=== PATIENT | female | born 1955 | race African-American/Black ===

== ENCOUNTER 2024-09-08 00:55 | Emergency (ER) | payer OTHER ==
[~2024-09-08] VITALS: Ht 167.6 cm; Wt 76.2 kg
--- NOTE | 2024-09-08 01:43 | ED.PDOC ---
History of Present Illness HPI Comments 69-year-old female who came to ER due to syncope. States she was at home, laying at the couch, when she stood up and suddenly felt dizzy and lightheaded, and passed out. Patient woke up on the ground and was assisted by family members. Patient currently complaining of headaches, chest pains, and generalized weakness. Blood sugar upon arrival was 117, with a blood pressure 107/72 mm Hg. Patient states possible fevers, but patient was afebrile at arrival. Chief Complaint: Syncope Time Seen by MD: 01:43 Primary Care Provider: N/A Reviewed Notes: Nurses Notes Allergies: Coded Allergies: No Known Drug Allergy (Verified Allergy, Unknown, 09/08/24) Home Meds Active Scripts Ondansetron Odt 4MG Tab (ZOFRAN PO) 4 Mg Tb, 4 MG PO Q6HP PRN, #20 TAB ODT TAB-DISSOLVE IN MOUTH, THEN SWALLOW Prov:MARIUSZ SHEA [facility] 09/08/24 Ibuprofen (Ibuprofen) 600 Mg Tab, 1 TAB PO Q6HP PRN, #30 TAB Prov:MARIUSZ SHEA [facility] 09/08/24 Acetaminophen (Acetaminophen) 500 Mg Tab, 500 MG PO Q4HP PRN, #30 TAB Prov:MARIUSZ SHEA [facility] 09/08/24 Oseltamivir Phosphate (Tamiflu) 75 Mg Cap, 75 MG PO BID for 5 Days, #10 CAP Prov:MARIUSZ SHEA 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 Family History Family History: Reviewed,noncontributory to illness Social History Smoker: Non-Smoker Alcohol: Denies ETOH Use Drugs: Denies Drug Use Lives In: Home Constitutional: reports: malaise, weakness; denies: chills, diaphoresis, fatigue, fever, sweats, others EENTM: denies: blurred vision, double vision, ear bleeding, ear discharge, ear drainage, ear pain, ear ringing, eye pain, eye redness, hearing loss, mouth pain, mouth swelling, nasal discharge, nose bleeding, nose congestion, nose pain, photophobia, tearing, throat pain, throat swelling, voice changes, others Respiratory: denies: cough, hemoptysis, orthopnea, SOB at rest, shortness of breath, SOB with excertion, stridor, wheezing, others Cardiovascular: reports: chest pain; denies: dizzy spells, diaphoresis, Dyspnea on exertion, edema, irregular heart beat, left arm pain, lightheadedness, palpitations, PND, syncope, others Gastrointestinal: denies: abdomen distended, abdominal pain, blood streaked bowels, constipated, diarrhea, dysphagia, difficulty swallowing, hematemesis, melena, nausea, poor appetite, poor fluid intake, rectal bleeding, rectal pain, vomiting, others Genitourinary: denies: abnormal vagina bleeding, burning, dyspareunia, dysuria, flank pain, frequency, hematuria, incontinence, pain, , vagina discharge, urgency, others Neurological: reports: dizziness, fainting, headache, weakness; denies: left sided numbness, left sided weakness, numbness, paresthesia, pre-existing deficit, right sided numbness, right sided weakness, seizure, speech problems, tingling, tremors, others Musculoskeletal: denies: back pain, gout, joint pain, joint swelling, muscle pain, muscle stiffness, neck pain, others Integumetry: denies: bruises, change in color, change in hair/nails, dryness, laceration, lesions, lumps, rash, wounds, others Allergic/Immunocompromised: denies: Difficulty Healing, Frequent Infections, Hives, Itching, others Hematologic/Lymphatic: denies: anemia, blood clots, easy bleeding, easy bruising, swollen glands, others Endocrine: denies: excessive hunger, excessive sweating, excessive thirst, excessive urination, flushing, intolerance to cold, intolerance to heat, unexplained weight gain, unexplained weight loss, others Psychiatric: denies: anxiety, bipolar disorder, depression, hopeless, panic disorder, schizophrenia, sleepless, suicidal, others Physical Exam Exam Comments Patient was very histrionic at time of evaluation. General Appearance: Moderate Distress (Patient presents as a moderately ill 69-year-old female.), Normal HEENT: Normal ENT Inspection, Pharynx Normal, TMs Normal Neck: Full Range of Motion, Non-Tender, Normal, Normal Inspection Respiratory: Chest Non-Tender, Lungs Clear, No Accessory Muscle Use, No Respiratory Distress, Normal Breath Sounds Cardiovascular: No Edema, No JVD, No Murmur, No Gallop, Normal Peripheral Pulses, Regular Rate/Rhythm Breast Exam: Deferred Gastrointestinal: No Organomegaly, Non Tender, No Pulsatile Mass, Normal Bowel Sounds, Soft Genitalia: Deferred Pelvic: Deferred Rectal: Deferred Extremities: No calf tenderness, Normal capillary refill, Normal inspection, Normal range of motion, Non-tender, No pedal edema Musculoskeletal : Apperance: Normal Neurologic: Alert, No Motor Deficits, No Sensory Deficits Cerebellar Function: Normal Reflexes: Normal Skin: Dry, Normal Color, Warm Lymphatic: No Adenopathy Was a procedure done? Was a procedure done?: No Differential Dx Considerations may include: Anemia, electrolyte imbalance, syncope, dehydration, influenza a/B, COVID-19, UTI, sepsis, viral illness X-Ray, Labs, Meds, VS Vital Signs Date Time Temp Pulse Resp B/P (MAP) Pulse Ox O2 Delivery O2 Flow Rate FiO2 09/08/24 02:00 82 9 123/70 (87) 98 09/08/24 01:16 99.8 109 16 107/72 (84) 100 09/08/24 01:14 90 Lab Test 09/08/24 01:33 09/08/24 01:19 09/08/24 01:08 Range/Units White Blood Count 6.7 4.4-10.8 10^3/uL Red Blood Count 5.89 H 4.0-5.20 10^6/uL Hemoglobin 13.2 12.2-16.2 g/dL Hematocrit 40.4 36.0-46.0 % Mean Corpuscular Volume 68.6 L 80.0-100.0 fL Mean Corpuscular Hemoglobin 22.5 L 28.0-32.0 pg Mean Corpuscular Hemoglobin Concent 32.7 32.0-36.0 g/dL Red Cell Distribution Width 15.9 H 11.8-14.3 % Platelet Count 188 140-450 10^3/uL Mean Platelet Volume 9.5 6.9-10.8 fL Neutrophils (%) (Auto) 72.6 37.0-80.0 % Lymphocytes (%) (Auto) 15.1 10.0-50.0 % Monocytes (%) (Auto) 11.8 0.0-12.0 % Eosinophils (%) (Auto) 0.0 0.0-7.0 % Basophils (%) (Auto) 0.5 0.0-2.0 % Neutrophils # (Auto) 4.9 1.6-8.6 10 ^3/uL Lymphocytes # (Auto) 1.0 0.4-5.4 10 ^3/uL Monocytes # (Auto) 0.8 0-1.3 10 ^3/uL Eosinophils # (Auto) 0 0-0.8 10 ^3/uL Basophils # (Auto) 0 0-0.2 10 ^3/uL Nucleated Red Blood Cells 0.1 % Sodium Level 134 L 136-145 mmol/L Potassium Level 3.9 3.5-5.1 mmol/L Chloride Level 102 98-107 mmol/L Carbon Dioxide Level 19 L 20-31 mmol/L Anion Gap 13 5-15 Blood Urea Nitrogen 23 9-23 mg/dL Creatinine 1.45 H 0.550-1.02 mg/dL Glomerular Filtration Rate Calc 39 >90 mL/min BUN/Creatinine Ratio 15.9 10.0-20.0 Serum Glucose 138 H 74-106 mg/dL Calcium Level 10.1 8.7-10.4 mg/dL Troponin I High Sensitivity 30 </=34 ng/L Influenza Type A Antigen Positive Negative Influenza Type B Antigen Negative Negative SARS-CoV-2 Antigen (Rapid) Negative NEGATIVE POC Glucose 114 H 70-106 mg/dl X-Ray, Labs, Meds, VS Comment Urinalysis as well as head CT and chest x-ray were pending at time of this note. All returns studies were reviewed by me personally. EKG revealed a sinus rhythm with bilateral atrial enlargement and probable left ventricular hypertrophy. Rate was 90, DC interval of 145 and QT interval 347. Serum laboratories were unremarkable, but swabs revealed a positive influenza A. Patient care will be transferred to Dr. Biswas for evaluation of pending studies. Once reviewed, he will respond accordingly. Time of 1ST Reevaluation: 02:39 Reevaluation 1ST: Improved Consultation: PCP Patient Education/Counseling: Diagnosis, Treatment Family Education/Counseling: Diagnosis, Treatment, No Family Present Departure 1 Departure Time of Disposition: 02:40 Impression: Primary Impression: Influenza A Disposition: 01 HOME / SELF CARE / HOMELESS Condition: Stable Additional Instructions: Advised patient utilize Tamiflu as directed until completion as well as additional medication as needed for symptomatic relief. Patient should practice good hydration and healthy nutrition throughout illness event. e-Prescriptions Ondansetron Odt 4MG Tab (ZOFRAN PO) 4 Mg Tb 4 MG PO Q6HP PRN, #20 TAB ODT TAB-DISSOLVE IN MOUTH, THEN SWALLOW Prov: MARIUSZ SHEA [facility] 09/08/24 Ibuprofen (Ibuprofen) 600 Mg Tab 1 TAB PO Q6HP PRN, #30 TAB Prov: MARIUSZ SHEA [facility] 09/08/24 Acetaminophen (Acetaminophen) 500 Mg Tab 500 MG PO Q4HP PRN, #30 TAB Prov: MARIUSZ SHEA [facility] 09/08/24 Oseltamivir Phosphate (Tamiflu) 75 Mg Cap 75 MG PO BID for 5 Days, #10 CAP Prov: MARIUSZ SHEA [facility] 09/08/24 Discharged With: Self, Friend Critical Care Note Critical Care Time?: No Stability Stability form required: No Heart Score Heart Score: Heart Score Response (Comments) Value History N/A 0 EKG N/A 0 Age N/A 0 Risk Factors N/A 0 Troponin N/A 0 Total 0 I personally scribed for MARIUSZ SHEA PAC ([email or web address]) on 09/08/24 at 01:43. Electronically submitted by Den Golden ([employer]). I personally scribed for MARIUSZ SHEA PAC ([email or web address]) on 09/08/24 at 02:05. Electronically submitted by Den Golden ([employer]). MARIUSZ SHEA PAC Sep 08, 2024 01:43
[2024-09-08 01:45] LABS: Basophils # (auto) 0 10 ^3/uL (0-0.2); Basophils % (auto) 0.5 % (0.0-2.0); Eosinophils # (auto) 0 10 ^3/uL (0-0.8); Hemoglobin 13.2 g/dL (12.2-16.2); Mean Corpuscular Volume 68.6 fL (80.0-100.0); Monocytes # (auto) 0.8 10 ^3/uL (0-1.3); Neutrophils # (auto) 4.9 10 ^3/uL (1.6-8.6); Nucleated Red Blood Cells % 0.1 %
[2024-09-08 01:46] LABS: Hematocrit 40.4 % (36.0-46.0); Lymphocytes % (auto) 15.1 % (10.0-50.0); Mean Corpuscular Hemoglobin 22.5 pg (28.0-32.0); Mean Corpuscular Hgb Conc. 32.7 g/dL (32.0-36.0); Monocytes % (auto) 11.8 % (0.0-12.0); Neutrophils % (auto) 72.6 % (37.0-80.0); Platelet Count (auto) 188 10^3/uL (140-450); Red Blood Cells 5.89 10^6/uL (4.0-5.20); Red Cell Distribution Width 15.9 % (11.8-14.3); White Blood Cell 6.7 10^3/uL (4.4-10.8)
[2024-09-08 01:59] LABS: COVID19 ANTIGEN SOFIA FIA NEGATIVE (NEGATIVE)
[2024-09-08 02:00] LABS: Rapid Influenza B Negative (Negative)
[2024-09-08 02:01] LABS: Rapid Influenza A Positive (Negative)
[2024-09-08 02:09] LABS: Chloride 102 mmol/L (98-107); Potassium 3.9 mmol/L (3.5-5.1)
[2024-09-08 02:10] LABS: Anion Gap 13 (5-15); Calcium 10.1 mg/dL (8.7-10.4)
[2024-09-08 02:15] LABS: BUN/Creatinine Ratio 15.9 (10.0-20.0); Blood Urea Nitrogen 23 mg/dL (9-23)
[2024-09-08 02:17] LABS: Carbon Dioxide 19 mmol/L (20-31); Glucose 138 mg/dL (74-106); Sodium 134 mmol/L (136-145)
[2024-09-08] MEDS: HYDROcodone-ACET 10/325MG TAB PO ONE (02:30)
[2024-09-08] MEDS ORDERED: IBUP-1454 PO (02:41)
[2024-09-08] MEDS ORDERED: ZOFR4T PO (02:41)
[2024-09-08] MEDS ORDERED: ACET500T58 PO (02:41)
[2024-09-08] MEDS ORDERED: TAMIFLU PO (02:41)
[2024-09-08] MEDS ORDERED: CEFD300C2 PO (04:01)
--- NOTE | 2024-09-08 04:04 | DVH ---
Examination: HWOCT CLINICAL INDICATION: Severe headache. COMPARISON: None. CONTRAST USED: None. TECHNIQUE: A plain CT study of brain is performed. Technique for this CT scan was done using princi ples of ALARA (As Low As Reasonably Achievable). Multiplanar reconstructions were obtained. 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 No ob vious focal lesion is seen in the supratentorial region. There is no midline shift or mass effect, intra or extra-axial fluid collections or hemorrhage. Periventricular White Matter/Basal Ganglia: Focal areas of altered attenuation within the periventric ular white matter or basal ganglia indicating ischemia. POSTERIOR FOSSA: The brainstem is normal and the visualized cerebellar hemispheres are unremarkable. VENTRICULAR SYSTEM: There is generalized prominence of ventricular system and cortical sulci, suggest richard of cerebral atrophy. There is no evidence of hydrocephalus or transependymal flow of cerebrospinal fluid. SKULL BASE AND PARASELLAR REGION: The skull base is normal with no parasellar masses or abnormalities identified. CALVARIUM AND SCALP REGION: No abnormality is seen. PARANASAL SINUSES: No significant inflammatory changes are identified in the paranasal sinuses. IMPRESSION: 1. Ischemic changes are seen in the periventricular deep white matter. 2. 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 3. Generalized prominence of ventricular system and cortical sulci, suggestive of cerebral atrophy. Electronically Signed 09/08/2024 04:03 Alea Kasper
--- NOTE | 2024-09-08 04:38 | DVH ---
CHEST RADIOGRAPH Indication: Shortness a breath Technique: Single frontal view of the chest was obtained Comparison: None FINDINGS: Lines and Tubes: None Lungs: No focal consolidation. Pleura: No effusion. No pneumothorax. Cardiomediastinal contours: Unremarkable Bones: No acute osseous abnormality. IMPRESSION: 1. No acute cardiopulmonary disease.
[2024-09-08 05:00] VITALS: BP 149/76; PULSE 95; RESP 16; O2SAT 96
--- NOTE | 2024-09-12 12:40 | ECG ---
[facility] Test Date: 2024-09-08 Test Time: 01:14:40 Pat Name: PLACIDO STEELE Department: ER Room: Gender: F [employer]/Designer: : 1955 Requested By: MARIUSZ SHEA Order Number: [id number] Reading MD: Lalo Murray Measurements Intervals [place] Rate: 90 P: 81 ID: [id number] QRS: 77 QRSD: 85 T: 55 QT: 347 QTc: 425 Interpretive Statements Sinus rhythm Biatrial enlargement Probable left ventricular hypertrophy Electronically Signed On 09-12-2024 17:54:06 PST by Lalo Murray Please click the below link to view image of tracing.
== END 2024-09-08 05:25 | disposition home or self-care (01) ==
LOC: ER 00:55
DX: J10.1 Influenza due to other identified influenza virus with other respiratory manifestations (principal); Z79.899 Other long term (current) drug therapy; Z20.822 Contact with and (suspected) exposure to COVID-19
CPT/HCPCS: 36415; 70450; 71045; 80048; 82962; 84484; 85025; 87426; 87804; 93005